=== PATIENT | female | born 1995 | race Caucasian/White ===

== ENCOUNTER → 2020-03-13 17:55 | Observation (INO) | END | disposition home or self-care (01) | LOC: 1NENULAB | PROVIDERS: ADMIT Student in an Organized Health Care Education/Training Program; ATTEND Student in an Organized Health Care Education/Training Program ==

== ENCOUNTER 2020-03-17 15:11 | Inpatient (IN) ==
[2020-03-17] MEDS ORDERED: Famotidine 20 MG/2 ML VIAL IVP PRN (15:18)
[2020-03-17] MEDS ORDERED: Metoclopramide 10 MG/2 ML VIAL IVP PRN (15:18)
[2020-03-17] MEDS ORDERED: Naloxone 0.4 MG/ML INJ IVP PRN (15:18)
[2020-03-17] MEDS ORDERED: Lidocaine 1% 20 ML MDV INFILT PRN (15:18)
[2020-03-17] MEDS ORDERED: Ringers Solution, Lactated 1,000 ML IVC SCH (15:30)
[2020-03-17 16:08] LABS: Basophils % 0.2 %; Eosinophils # 0.2 K/mcL (0.0-0.6); Eosinophils % 1.4 %; Hematocrit 36.1 % (35.3-44.9); Hemoglobin 12.3 g/dL (11.5-15.4); Immature Granulocytes % 1.9 % (0-4); Lymphocytes # 1.8 K/mcL (0.6-4.6); Lymphocytes % 15.1 %; Mean Corpuscular HGB Conc 34.1 g/dL (31.6-35.5); Mean Corpuscular Hemoglobin 32.6 pg (28.0-33.3); Mean Corpuscular Volume 95.8 fL (83.0-100.0); Mean Platelet Volume 9.7 fL (9.4-12.4); Monocytes # 1.1 K/mcL (0.0-1.3); Monocytes % 9.3 %; Neutrophils # 8.5 K/mcL (1.6-8.9); Platelet Count 244 K/mcL (140-400); Red Blood Count 3.77 M/mcL (3.82-4.97); Red Cell Distribution Width 12.9 % (11.5-14.5); Segmented Neutrophils % 72.1 %; White Blood Count 11.8 K/mcL (4.3-11.1)
[2020-03-17 16:17] LABS: Amphetamine Screen,Urine Negative ng/mL (Cutoff=1000); Barbiturate Screen,Urine Negative ng/mL (Cutoff=200); Benzodiazepines Screen,Urine Negative ng/mL (Cutoff=200); Cannabinoid Screen,Urine Negative ng/mL (Cutoff = 50); Cocaine Screen,Urine Negative ng/mL (Cutoff= 300); Opiate Screen,Urine Negative ng/mL (Cutoff=300); Phencyclidine Screen,Urine Negative ng/mL (Cutoff=25)
[2020-03-17 17:24] LABS: Alanine Aminotransferase 19 Units/L (7-52); Aspartate Amino Transferase 22 Units/L (13-39); BUN/Creatinine Ratio 12 (6-26); Blood Urea Nitrogen 6 mg/dL (6-20); Lactate Dehydrogenase 209 Units/L (140-271); Uric Acid 3.8 mg/dL (2.3-7.6); eGFR For African Americans > 60 (> 60); eGFR For Non-African Americans > 60 (> 60)
[2020-03-17 17:30] LABS: Protein/Creatinine Ratio,Urine 0.21 mg/mg (0.00-0.20)
[2020-03-17] MEDS ORDERED: EPHEDrine 50 MG/ML VIAL IVP PRN (18:51)
[2020-03-17] MEDS ORDERED: Epidural Premix (fent/bupiv) 110 ML EP ONE (18:56)
[2020-03-17] MEDS ORDERED: Epidural Premix (fent/bupiv) 110 ML EP SCH (19:00)
[2020-03-18] MEDS ORDERED: Measles/Mumps/Rubella Vacc 0.5 ML VIAL SQ PRN (01:13)
[2020-03-18] MEDS ORDERED: Rho Immune Globulin 1,500 UNIT SYRINGE IM PRN (01:13)
[2020-03-18] MEDS ORDERED: Acetaminophen 325 MG TABLET PO PRN (01:13)
[2020-03-18] MEDS ORDERED: Oxytocin 20 units/ LR 1000 mL 20 UNIT/1,000 ML BAG IVC SCH (01:15)
[2020-03-18] MEDS: Ibuprofen 600 MG TABLET PO PRN ×3 (04:26→19:50)
[2020-03-18 06:52] LABS: Basophils % 0.2 %; Eosinophils % 0.1 %; Hematocrit 30.8 % (35.3-44.9); Lymphocytes # 1.2 K/mcL (0.6-4.6); Lymphocytes % 6.4 %; Mean Corpuscular HGB Conc 34.1 g/dL (31.6-35.5); Mean Corpuscular Hemoglobin 32.8 pg (28.0-33.3); Mean Corpuscular Volume 96.3 fL (83.0-100.0); Mean Platelet Volume 9.9 fL (9.4-12.4); Monocytes # 1.5 K/mcL (0.0-1.3); Monocytes % 7.9 %; Platelet Count 238 K/mcL (140-400); Red Cell Distribution Width 13.1 % (11.5-14.5); Segmented Neutrophils % 84.4 %
[2020-03-18 06:53] LABS: Hemoglobin 10.5 g/dL (11.5-15.4); White Blood Count 18.9 K/mcL (4.3-11.1)
[2020-03-18] MEDS: Prenatal Vit/FA 1 EACH TABLET PO SCH (07:56)
[2020-03-19] MEDS: Ibuprofen 600 MG TABLET PO PRN ×2 (02:25→07:51)
[2020-03-19 07:49] VITALS: BP 93/63
[2020-03-19] MEDS: Prenatal Vit/FA 1 EACH TABLET PO SCH (07:50)
== END 2020-03-19 10:10 | disposition home or self-care (01) | DRG 807 ==
LOC: 1NENULAB 15:11 → 1NENUOBS 03-18 04:06
PROVIDERS: ADMIT Obstetrics & Gynecology; ATTEND Obstetrics & Gynecology